=== PATIENT | female | born 1985 | race Caucasian/White ===

== ENCOUNTER 2017-05-14 05:52 | Inpatient (IN) ==
[2017-05-14] MEDS ORDERED: Famotidine 20 MG/2 ML VIAL IVP ONE (06:21)
[2017-05-14] MEDS ORDERED: Naloxone 0.4 MG/ML INJ IVP PRN (06:21)
[2017-05-14] MEDS ORDERED: Metoclopramide 10 MG/2 ML VIAL IVP ONE (06:21)
[2017-05-14] MEDS ORDERED: Ringers Solution, Lactated 1,000 ML IVC ONE (06:21)
[2017-05-14] MEDS ORDERED: CeFAZolin Premix DUPLEX 2,000 MG/50 ML BAG IVPB ONE (06:21)
[2017-05-14] MEDS ORDERED: Ringers Solution, Lactated 1,000 ML ONE ×2 (06:26→20:30)
[2017-05-14] MEDS ORDERED: Ringers Solution, Lactated 1,000 ML IVC SCH (06:30)
[2017-05-14 06:36] LABS: Basophils % 0.4 %; Eosinophils # 0.1 K/mcL (0.0-0.6); Eosinophils % 0.9 %; Hematocrit 35.6 % (35.3-44.9); Hemoglobin 12.1 g/dL (11.5-15.4); Immature Granulocytes % 0.8 % (0-4); Lymphocytes # 2.2 K/mcL (0.6-4.6); Lymphocytes % 28.7 %; Mean Corpuscular Hemoglobin 31.4 pg (28.0-33.3); Mean Corpuscular Volume 92.5 fL (83.0-100.0); Mean Platelet Volume 10.9 fL (9.4-12.4); Monocytes # 0.9 K/mcL (0.0-1.3); Monocytes % 11.4 %; Neutrophils # 4.4 K/mcL (1.6-8.9); Platelet Count 182 K/mcL (140-400); Red Blood Count 3.85 M/mcL (3.82-4.97); Red Cell Distribution Width 14.1 % (11.5-14.5); Segmented Neutrophils % 57.8 %
--- NOTE | 2017-05-14 07:01 | Anesthesia Evaluation PreOp ---
Date of Encounter: 05/14/17 Time of Encounter: 06:59 - Past History Planned Operation: eamon Cardiac History: Denies any Significant Hx Pulmonary History: Denies Any Significant HX TEACHERS AIDE History: Denies Any Significant HX Other Medical History: Denies Any Significant HX Anesthesia History: No Prior Anesthetic Complications, Past Anesthesia ( csections x 2) : Yes (39 weeks, ) Alcohol Use: none Drug use: none Medications and Allergies Tablet 1 tab PO DAILY 05/12/15 [History] 3 Allergy/AdvReac Type Severity Reaction Status Date / Time No Known Allergies Allergy Verified 02/02/15 18:02 - Meds/Allergy Pre-op Review Medications Reviewed: Yes Allergies Reviewed: Yes Beta Blockers on Current Med List: No Anesthesia Results - Labs 05/14/17 06:13 Anesthesia Exam Height: 66 Weight: 83 - HEENT Pupil (Motor): Pupils equal Mallampati: II Teeth: Normal Oral Opening: Greater than 3 - TEACHERS AIDE LOC: Oriented TEACHERS AIDE Motor: Normal RUE, Normal LUE, Normal RLE, Normal LLE, Normal Face TEACHERS AIDE Sensory: Normal: RUE, LUE, RLE, LLE, Face - Cardiac Rhythm: Regular Murmur: None JVD: No Carotid Bruit: No - Pulmonary Breath Sounds: bilateral Clear Respiratory Effort: Symmetrical Anesthesia Assess/Plan ASA Score: 2 Modified [place] Scale for Level of Consciousness: Cooperative, oriented, and tranquil Anesthetic Plan: Regional Monitoring Plan: Standard Monitors Recovery Plan: PACU
[2017-05-14] MEDS ORDERED: *HR* FentaNYL (PF) 100 MCG/2 ML VIAL ONE (07:20)
[2017-05-14] MEDS ORDERED: *HR* Oxytocin 10 UNIT/ML VIAL IM ONE ×2 (07:20→08:43)
[2017-05-14] MEDS ORDERED: Morphine Sulfate/PF 5mg/10mL Vial ONE (07:20)
[2017-05-14] MEDS ORDERED: EPHEDrine 50 MG/ML VIAL ONE (07:20)
[2017-05-14] MEDS ORDERED: *HR* Phenylephrine 10 MG/ML VIAL ONE (07:20)
[2017-05-14] MEDS ORDERED: Ringers Solution, Lactated 2,000 ML ONE (07:21)
--- NOTE | 2017-05-14 07:43 | History & Physical Report ---
Date of Encounter: 05/14/17 Time of Encounter: 07:42 24 Hour HP Update - Instructions Instructions: If the History and Physical is less than 30 days old and was completed prior to A.M. admission and or procedure and has NOT been updated on calendar day of procedure please complete this update prior to performing procedure. - Update Patient reports changes in Medical Condition: No Changes in examination, assessment, or condition: No Changes in Medication: No Preop tests/diagnostics Reviewed: Yes Surgery Remains Indicated: Yes Consent for Planned Operative Procedure(s) Verified: Yes - Pre-Operative Checklist Preoperative Checklist Indicated: Yes Prophylactic Antibiotic Ordered: Yes Home Medications Include Beta Roosevelt: No Is VTE Prophylaxis Indicated?: Yes
[2017-05-14] MEDS ORDERED: Dexamethasone 4 MG/ML VIAL ONE (08:41)
[2017-05-14] MEDS ORDERED: Ondansetron 4 MG/2 ML VIAL ONE (08:41)
[2017-05-14] MEDS ORDERED: Ibuprofen 400 MG TABLET PO PRN (08:55)
[2017-05-14] MEDS ORDERED: Ondansetron 4 MG/2 ML VIAL IVP ONE (08:55)
[2017-05-14] MEDS ORDERED: Ondansetron 4 MG/2 ML VIAL IVP PRN ×2 (08:55→11:38)
[2017-05-14] MEDS ORDERED: *HR* Morphine 2 MG/ML SYRINGE IVP PRN (08:55)
[2017-05-14] MEDS ORDERED: *HR* OxyCODONE/APAP 5/325 TABLET PO PRN ×2 (08:55→11:38)
[2017-05-14] MEDS ORDERED: *HR* Meperidine 50 MG/ML SYRINGE IVP PRN (08:55)
--- NOTE | 2017-05-14 09:21 | OB/GYN Procedure Note ---
Section - Date of procedure: 05/14/17 Preop diagnosis: desires repeat Post-op diagnosis: same Procedure: repeat low transverse Surgeon: Vasile Yee Estimated blood loss (cc): 700 Was there an creative assistant present: Yes Home Stereo Equipment Installer: Antony Maria Brand Activation Manager: Danette Pineda Anesthesia Type: Spinal section complications: none Disposition: L&D Recovery Room Specimens: Placenta - (s) A Delivery Date: 05/14/17 Delivery Time: 08:37 Presentation: vertex Position: LOT Route of delivery: other Gender: Male Viability: Viable Pounds: 7 Ounces: 13 Gram Weight: 3545 kg at 1 minute: 9 at 5 minutes: 9 Shoulder Dystocia: not encountered Placenta: complete extraction Cord: 3 umbilical vessels - Narrative Narrative: Patient was taken to the operating room and placed in supine position with left uterine displacement following the administration of spinal anesthetic. Skin was then prepped and draped in usual sterile fashion, and a timeout procedure was performed. A Pfannenstiel incision was performed through the previous surgical scar, and extended down to the fascial layer until the abdominal cavity was entered. A bladder flap was then gently created with sharp dissection. A low transverse uterine incision was performed and extended bilaterally with bandage scissors. The membranes were then ruptured with clear fluid present. A viable male was delivered from a vertex presentation with scores of 9 and 9 at 1 and 5 minutes respectively and the infant weighed 7 pounds and 13 ounces. The cord was clamped and cut, and the was handed to the nursery team. The placenta was manually removed. The uterine cavity was wiped clean with wet lap sponge. The uterine incision was closed in a layered fashion with 0 Vicryl suture in a running locking fashion. Good hemostasis was noted. The Paracolic gutters were then gently wiped clean with wet lap sponge. Inspection was then performed with good hemostasis still noted with some minimal oozing from the peritoneal edges. Scottie was applies. The fascial layer was closed with 0 PDS Stratafix suture in a running nonlocking fashion. The subcutaneous layer was irrigated with sterile water and then closed with 4-0 Vicryl suture in a running nonlocking fashion, and continuing to close the skin in a running subcuticular fashion. A piece of Dermabond mesh was then applied over the incision site. Patient tolerated procedure well, all sponge needle and instrument counts reported as correct. Estimated blood loss was 700 mL. The urine in the Garcia catheter was clear and yellow, and she was taken to recovery room in stable condition.
[2017-05-14] MEDS ORDERED: Metoclopramide 10 MG/2 ML VIAL IVP PRN (11:38)
[2017-05-14] MEDS ORDERED: Sennosides 8.6 MG TABLET PO PRN (11:38)
[2017-05-14] MEDS ORDERED: Simethicone 80 MG TAB.CHEW PO PRN (11:38)
[2017-05-14] MEDS ORDERED: Oxytocin 20 units/ LR 1000 mL 20 UNIT/1,000 ML BAG IVC SCH (11:38)
[2017-05-14] MEDS: Ibuprofen 600 MG TABLET PO PRN (19:01)
[2017-05-15 04:56] LABS: Basophils % 0.1 %; Eosinophils # 0.1 K/mcL (0.0-0.6); Eosinophils % 0.4 %; Hematocrit 30.5 % (35.3-44.9); Immature Granulocytes % 0.6 % (0-4); Lymphocytes # 2.3 K/mcL (0.6-4.6); Lymphocytes % 20.5 %; Mean Corpuscular HGB Conc 33.8 g/dL (31.6-35.5); Mean Corpuscular Hemoglobin 31.2 pg (28.0-33.3); Mean Corpuscular Volume 92.4 fL (83.0-100.0); Mean Platelet Volume 10.8 fL (9.4-12.4); Monocytes # 1.1 K/mcL (0.0-1.3); Neutrophils # 7.8 K/mcL (1.6-8.9); Platelet Count 162 K/mcL (140-400); Red Cell Distribution Width 13.7 % (11.5-14.5); Segmented Neutrophils % 68.4 %
[2017-05-15 05:12] LABS: Hemoglobin 10.3 g/dL (11.5-15.4)
--- NOTE | 2017-05-15 09:12 | OB/GYN Progress Note ---
Date of Encounter: 05/15/17 Time of Encounter: 09:10 - Assessment and Plan (1) Status post repeat low transverse section Current Visit: Yes Status: Acute Continue routine postop/ care possible discharge home tomorrow (2) Breast feeding status of mother Current Visit: Yes Status: Acute support prn Subjective - Subjective Principal diagnosis: Postop/ day 1 repeat c/s Interval history: Patient in bed resting. Patient denies any pain at this time. Patient reports + flatus. Patient reports: appetite normal, voiding normally, pain well controlled, ambulating normally : doing well, nursing well Objective - Vital Signs Latest vital signs: Vital Signs Temp Pulse Pulse Resp BP Pulse Ox 05/15/17 08:00 98.3 F 57 12 100/61 96 05/15/17 03:50 97.7 F 57 16 104/65 98 05/15/17 00:05 97.3 F L 66 16 108/63 96 05/14/17 20:03 97.8 F 60 16 121/71 97 05/14/17 14:30 97.5 F L 73 16 124/73 05/14/17 13:30 97.4 F L 57 16 118/66 05/14/17 12:35 97.5 F L 60 16 122/67 05/14/17 12:30 97.5 F L 60 16 122/67 97 05/14/17 12:03 97.6 F 63 16 121/64 05/14/17 12:00 63 16 121/64 05/14/17 11:30 97.6 F 79 16 112/67 97 Intake and Output 05/14/17 05/15/17 05/15/17 23:59 07:59 15:59 Intake Total 1300 / 1300 Output Total 600 / 600 3400 / 3400 Balance 700 / 700 -3400 / -3400 Intake: Oral 1300 / 1300 Output: Catheter 600 / 600 3400 / 3400 Other: Weight 79.742 kg Patient Weight 05/15/17 23:59 Weight 79.742 kg - Exam Lungs: bilateral: normal Extremities: Present: normal Abdomen: Present: normal appearance, soft, gravid Incision: Present: normal, dry, intact Uterus: Present: normal, firm Fundal Height: 2 (U/2) - Labs Labs: Laboratory Results - last 24 hr 01/09/18 04:38 WBC 11.3 H RBC 3.30 L Hgb 10.3 L D Hct 30.5 L MCV 92.4 MCH 31.2 MCHC 33.8 RDW 13.7 Plt Count 162 MPV 10.8 Immature Gran % 0.6 Seg Neutrophils % 68.4 Lymphocytes % 20.5 Monocytes % 10.0 Eosinophils % 0.4 Basophils % 0.1 Neutrophils # 7.8 Lymphocytes # 2.3 Monocytes # 1.1 Eosinophils # 0.1 Basophils # 0.0
[2017-05-15] MEDS: Ibuprofen 600 MG TABLET PO PRN ×3 (09:45→21:52)
[2017-05-15] MEDS: Prenatal Vit/FA 1 EACH TABLET PO SCH (09:45)
[2017-05-15] MEDS ORDERED: Lanolin 7 G OINT...G. TP PRN (20:35)
[2017-05-16] MEDS: Ibuprofen 600 MG TABLET PO PRN (08:41)
[2017-05-16] MEDS: Prenatal Vit/FA 1 EACH TABLET PO SCH (08:41)
[2017-05-16 10:00] VITALS: BP 126/76
--- NOTE | 2017-05-16 10:46 | Discharge Summary ---
Date of Encounter: 05/16/17 Time of Encounter: 10:43 - Discharge Diagnosis (1) Breast feeding status of mother Priority: Secondary Status: Acute Comments: well established. Pt has rx for breastpump for home use. (2) Status post repeat low transverse section Priority: Primary Status: Acute Comments: Pt meeting all post-op milestones. Pain well controlled. Lochia light. Ambulating, tolerating regular diet, voiding freely and passing flatus. Pt desires discharge home today. - Discharge Medications Prescriptions: OxyCODONE/APAP 5/325 [Percocet 5/325 MG] 1 each PO Q4HR PRN #30 tablet PRN Reason: Moderate pain 4-6 Ibuprofen [Motrin] 600 mg PO Q6HR PRN #30 tablet PRN Reason: Cramping Breast Pump [BREAST PUMP] 1 each .ROUTE AD #1 each Docusate [Colace] 100 mg PO BID #30 capsule Home Medications: Tablet 1 tab PO DAILY 05/12/15 [History] Breast Pump [BREAST PUMP] 1 each .ROUTE AD #1 each 05/15/17 [Rx] Docusate [Colace] 100 mg PO BID #30 capsule 05/16/17 [Rx] Ibuprofen [Motrin] 600 mg PO Q6HR PRN #30 tablet 05/16/17 [Rx] Lanolin [Lansinoh] 1 appl TP TID PRN oint...g. 05/16/17 [Rx] OxyCODONE/APAP 5/325 [Percocet 5/325 MG] 1 each PO Q4HR PRN #30 tablet 05/16/17 [Rx] Simethicone [Gas-X] 80 mg PO TID PRN tab.chew 05/16/17 [Rx] Allergies/Adverse Reactions: 3 Allergy/AdvReac Type Severity Reaction Status Date / Time No Known Allergies Allergy Verified 02/02/15 18:02 Data Procedures and tests throughout hospitalization: Laboratory Tests 05/14/17 05/15/17 06:13 04:38 WBC 7.6 11.3 H RBC 3.85 3.30 L Hgb 12.1 10.3 L D Hct 35.6 30.5 L MCV 92.5 92.4 MCH 31.4 31.2 MCHC 34.0 33.8 RDW 14.1 13.7 Plt Count 182 162 MPV 10.9 10.8 Immature Gran % 0.8 0.6 Seg Neutrophils % 57.8 68.4 Lymphocytes % 28.7 20.5 Monocytes % 11.4 10.0 Eosinophils % 0.9 0.4 Basophils % 0.4 0.1 Neutrophils # 4.4 7.8 Lymphocytes # 2.2 2.3 Monocytes # 0.9 1.1 Eosinophils # 0.1 0.1 Basophils # 0.0 0.0 Date of admission: 05/14/17 05:52 Primary care physician: PCP NONE Discharging clinician: Jonna Tate Anticipated date of discharge: 05/16/17 - Patient Status Disposition: Home, Self-Care Condition: Good Functional capacity at discharge: independent ambulation Overall status at discharge: patient is progressing back to baseline - Discharge Instructions Follow Up With: NONE,PCP [Primary Care Provider] - Vasile Yee DO [Partnered Physician] - - Diet and Activity Activity: increase activity as tolerated Diet: regular diet Hospital Course Reason for admission: section Delivery: section Episiotomy: none Laceration: none Other procedures: none complications: none Discharge diagnosis: IUP at term delivered [place] baby: male Hospital course: - Date of procedure: 05/14/17 Preop diagnosis: desires repeat Post-op diagnosis: same Procedure: repeat low transverse Surgeon: Vasile Yee Estimated blood loss (cc): 700 Was there an speech correction assistant present: Yes Ophthalmic Photographer: Antony Maria Donor Relations Officer: Danette Pineda Anesthesia Type: Spinal section complications: none Disposition: L&D Recovery Room Specimens: Placenta - Infant (s) Infant A Infant Delivery Date: 05/14/17 Delivery Time: 08:37 Presentation: vertex Position: LOT Route of delivery: other Gender: Male Viability: Viable Pounds: 7 Ounces: 13 Gram Weight: 3545 kg at 1 minute: 9 at 5 minutes: 9 Shoulder Dystocia: not encountered Placenta: complete extraction Cord: 3 umbilical vessels course: uncomplicated, home PPD#2, Time Attestation: Total time spent providing and/or coordinating discharge services: Time Spent: Less than 30 minutes - VTE Documentation of Mechanical Device: Intermittent pneumatic compression device Exam - Constitutional Vitals: Temp Pulse Resp BP Pulse Ox 97.6 F 65 16 126/76 97 05/16/17 07:55 05/16/17 07:55 05/16/17 07:55 05/16/17 07:55 05/16/17 07:55 General appearance IM: A&O X 3, pleasant, no acute distress - Respiratory Respiratory exam: Present: CTAB - Cardiovascular Cardiovascular exam IM: Present: RRR, +S1, +S2 - GI/Abdominal GI/Abdominal exam IM: soft Incision: dry, intact - Uterine Tone: Firm Uterus Position: 1 Finger Below Umbilicus - Extremities Exam Extremities exam IM: Present: normal inspection, pedal edema (mild LE edema bilaterally) - Psychiatric Additional comments: reports good mood
== END 2017-05-16 13:31 | disposition home or self-care (01) | DRG 766 ==
LOC: 1NENULAB 05:52 → 1NENUOBS 11:37